=== PATIENT | male | born 1965 | race Caucasian/White ===

== ENCOUNTER 2018-10-21 15:48 | Observation (INO) ==
[2018-10-21 16:20] LABS: BASO# 0.04 X1000 (0.0-0.2); BASO% 0.4 % (0.0-0.8); EOS# 0.39 X1000 (0.0-0.7); EOS% 3.6 % (0.0-10.0); HEMATOCRIT 41.6 % (42.0-52.0); HEMOGLOBIN 14.7 g/dL (14.0-18.0); IMM GRAN# 0.02 X1000 (0.0-0.04); IMM GRAN% 0.2 % (0.0-0.5); LYMPH# 4.31 X1000 (1.2-3.4); LYMPH% 40.1 % (20.5-51.1); MCH 33.2 PG (27-31); MCHC 35.3 g/dL (33-37); MCV 93.9 FL (81-99); MONO# 0.57 X1000 (0.11-0.59); MONO% 5.3 % (1.7-9.3); MPV 10.4 FL (7.4-10.4); NEUT# 5.42 X1000 (1.4-6.5); NEUT% 50.4 % (42.2-75.2); PLT 203 X1000 (130-400); RBC 4.43 XMIL (4.7-6.1); RDW 14.1 % (11.5-14.5); WBC 10.75 X1000 (4.8-10.8)
[2018-10-21 16:33] LABS: INR 0.92; PROTIME 12.8 Seconds (11.0-16.0)
[2018-10-21 16:34] LABS: PTT 28.1 Seconds (22.3-41.8)
[2018-10-21 16:46] LABS: AGAP 9; ALBUMIN 3.9 g/dL (3.5-5.0); ALKALINE PHOSPHATASE 81 U/L (32-122); BUN 6 mg/dL (8-22); CHLORIDE 105 mmol/L (98-107); COSMO 278; CREATININE 0.9 mg/dL (0.7-1.2); ESTIMATED GFR > 60; GLUCOSE 114 mg/dL (70-104); GOT 15 U/L (10-34); GPT 8 U/L (10-44); POTASSIUM 4.1 mmol/L (3.5-5.1); SODIUM 140 mmol/L (136-145); TCO2 25 mmol/L (25-35); TOTAL BILIRUBIN < 0.15 mg/dL (0.20-1.00); TOTAL PROTEIN 6.2 g/dL (6.3-8.3)
--- NOTE | 2018-10-21 16:57 | Diag Imaging Result Doc PS360 ---
EXAM: CT HEAD W/O CONTRAST HISTORY: stoke like symptoms TECHNIQUE: CT head without contrast COMPARISON: None. FINDINGS: No parenchymal hemorrhage. No epidural or subdural hematoma. No subarachnoid hemorrhage. No mass identified on this noncontrasted exam. No hydrocephalus. No sinus opacification. IMPRESSION: No hemorrhage. Negative brain CT without contrast. This exam was performed using automated exposure control, adjustment of mA or kV according to patient size, and/or use of iterative reconstruction technique. Electronically signed by Pancho Henning 10/21/2018 4:54 PM
--- NOTE | 2018-10-21 17:15 | PROVIDER DOCUMENTATION ---
This chart was entered by Mildred Sandoval Scribe, acting as scribe for Talib Patterson MD. HPI-Neurological Disorder - General Chief Complaint: Stroke-Like Symptoms Stated Complaint: STROKE Time Seen by Provider: 10/21/18 16:00 Source: patient Allergies/Adverse Reactions: Patient Allergies Allergy/AdvReac Type Severity Reaction Status Date / Time cephalexin monohydrate * Allergy Intermediate SWELLING Verified 04/10/15 16:23 [From Keflex] Home Medications: Home Medication List Medication Instructions Recorded Confirmed Last Taken Type Ibuprofen [Motrin] 600 mg PO TID #30 tablet 04/10/15 Unknown Rx - History of Present Illness-Neuro Nature of Presenting Problem: 53 y/o male presents to ED with intermittent L sided weakness/numbness, slurred speech, dizziness, and difficulty walking onset this morning. Pt reports his symptoms were present when he woke up at 0700 this morning. Pt states he has had 3-4 episodes of these symptoms today. Pt reports his symptoms have improved throughout the day. Pt is alert and oriented. Severity: reports: mild Onset/Duration: reports: this morning Timing: reports: gone now Context: reports: impaired speech, other (L sided weakness) Character of Altered Mental Status: reports: N/A Any recent trauma/injury?: reports: none Character of Deficits: reports: new weakness (L sided), altered sensation (L sided numbness), impaired speech, decreased ability to walk New weakness or altered sensation location:: reports: IVANIA LOPEZ Cognitive Baseline: alert, oriented x3 Gait Baseline: walks without assistance Associated Symptoms: reports: dizziness, numbness in legs/feet (L sided), slurred speech, trouble walking, weakness (L sided) Similar Symptoms Previously?: No Recently seen or treated by another doctor?: No Review of Systems - Adult - REVIEW OF SYSTEMS - ADULT Constitutional: denies: chills, fever Eyes: reports: no symptoms reported Ears, Nose, Mouth & Throat: reports: no symptoms reported Cardiovascular: denies: chest pain, palpitations Respiratory: denies: cough, shortness of breath Gastrointestinal: denies: abdominal pain, diarrhea, nausea, vomiting Genitourinary: reports: no symptoms reported Musculoskeletal: denies: back pain, joint pain Integumentary: reports: no symptoms reported Neurological: reports: dizziness/vertigo, numbness (L sided), slurred speech, other (L sided weakness; difficulty walking). denies: seizure Psychiatric: reports: no symptoms reported Endocrine: reports: no symptoms reported Hematologic/Lymphatic: reports: no symptoms reported Allergic/Immunologic: reports: no symptoms reported All Other Systems: Reviewed and Negative Past History - Adult - PAST MEDICAL HISTORY-ADULT Review of Records: reports: Old Records Reviewed, Nursing Assessment Review, Medications Reviewed Major Childhood Illnesses: reports: denies history Respiratory: reports: COPD - PRIOR SURGERIES/PROCEDURES Surgical/Procedure History: reports: hernia repair, orthopedic (extremity) (left knee) - PRIOR HOSPITALIZATIONS Prior Hospitalizations: reports: none - IMMUNIZATION STATUS Childhood Immunizations: See Nurse Assessment Flu Vaccine: See Nurse Assessment - FAMILY HISTORY Family History: reviewed, not pertinent - SOCIAL HISTORY Smoking: greater than 1 pack/day Provider spent 3-5 mins advising pt. on dangers of tobacco.: Discussed manners to quit use, and f/u contacts for add'l counseling. Substance Use: none/never Alcohol Use Frequency: occasionally Living Situation: family Physical Exam- Neurological - Physical Exam-Neuro Initial Vital Signs Reviewed: Yes General Appearance: appears well, alert, no apparent distress Eye Exam: bilateral eye: normal inspection, PERRL, EOMI HENMT: normocephalic/atraumatic, moist mucous membranes, normal ENT inspection Head Injury: no evidence of injury Neck: non-tender, full range of motion Respiratory: chest non-tender, lungs clear, normal breath sounds Cardiovascular: normal peripheral pulses, regular rate, rhythm Abdominal Exam: normal bowel sounds, non tender, soft Extremity: normal range of motion, non-tender, normal gait epic cupid analyst Exam: normal hearing, normal speech, PERRL Coordination/Gait: normal finger to nose, normal gait Motor/Sensory: no motor deficit, no sensory deficit, no pronator drift Neurologic: epic cupid analyst II-XII nml as tested, grossly normal, no motor/sensory deficits Integumentary: normal color, warm/dry Psych/Mental Status: normal mood/affect, normal thought content, normal thought process, oriented x 3 Progress - PLAN OF CARE/RESULTS Progress/Plan/Lab Results: Vital Signs - 8 hr 10/21/18 15:49 Temperature 97.5 F L Pulse Rate 69 Respiratory Rate 18 Blood Pressure 142/79 O2 Sat by Pulse Oximetry 98 Laboratory Results - last 24 hr 0810/21/18 10/21/18 16:02 16:02 16:02 WBC 10.75 RBC 4.43 L Hgb 14.7 Hct 41.6 L MCV 93.9 MCH 33.2 H MCHC 35.3 RDW Std Deviation 14.1 Plt Count 203 MPV 10.4 Immature Gran % (Auto) 0.2 Neut % (Auto) 50.4 Lymph % (Auto) 40.1 Larue % (Auto) 5.3 Eos % (Auto) 3.6 Baso % (Auto) 0.4 Immature Gran # (Auto) 0.02 Neut # (Auto) 5.42 Lymph # (Auto) 4.31 H Larue # (Auto) 0.57 Eos # (Auto) 0.39 Baso # (Auto) 0.04 PT INR PTT (Actin FS) Sodium 140 Potassium 4.1 Chloride 105 Carbon Dioxide 25 Anion Gap 9 BUN 6 L Creatinine 0.9 Estimated GFR/1.73 m2 > 60 BUN/Creatinine Ratio 7 Glucose 114 H POC Glucose Calculated Osmolality 278 Calcium 9.0 Total Bilirubin < 0.15 L AST 15 ALT 8 L Alkaline Phosphatase 81 Troponin T < 0.010 Total Protein 6.2 L Albumin 3.9 Globulin 2.0 Albumin/Globulin Ratio 2.0 10/21/18 10/21/18 16:02 16:02 WBC RBC Hgb Hct MCV MCH MCHC RDW Std Deviation Plt Count MPV Immature Gran % (Auto) Neut % (Auto) Lymph % (Auto) Larue % (Auto) Eos % (Auto) Baso % (Auto) Immature Gran # (Auto) Neut # (Auto) Lymph # (Auto) Larue # (Auto) Eos # (Auto) Baso # (Auto) PT 12.8 INR 0.92 PTT (Actin FS) 28.1 Sodium Potassium Chloride Carbon Dioxide Anion Gap BUN Creatinine Estimated GFR/1.73 m2 BUN/Creatinine Ratio Glucose POC Glucose 121 H Calculated Osmolality Calcium Total Bilirubin AST ALT Alkaline Phosphatase Troponin T Total Protein Albumin Globulin Albumin/Globulin Ratio Orders Category Date Time Status Cardiac Monitoring DIRECTED Care 10/21/18 16:01 Active Finger Stick Blood Sugar (ED) DIRECTED Care 10/21/18 16:01 Active Oxygen Therapy- ED Nursing DIRECTED Care 10/21/18 16:01 Active Saline Loc NOW Care 10/21/18 16:01 Active CHEST-PORTABLE [RAD] Stat Exams 10/21/18 16:[address] HEAD W/O CONTRAST [CT] Stat Exams 10/21/18 16:01 Completed CBC WITH ELECTRONIC DIFF [HEME] Stat Lab 10/21/18 16:02 Completed COMPREHENSIVE METABOLIC PANEL [CHEM] Stat Lab 10/21/18 16:02 Completed PROTIME WITH INR [COAG] Stat Lab 10/21/18 16:02 Completed PTT [COAG] Stat Lab 10/21/18 16:02 Completed TROPONIN T Stat Lab 10/21/18 16:02 Completed URINE DRUG SCREEN PL Stat Lab 10/21/18 16:03 Ordered EKG [EKG] Stat Ther 10/21/18 16:01 Ordered Result Diagrams: 10/21/18 16:02 10/21/18 16:02 - REASSESSMENT Reassessment #1 Time Reassessed: 17:26 Status: improving (Pt ambulatory around the room and ED without difficulty. Pt limps on the left from prior knee issues. Pt states he is not insured and that he will not be able to followup.) - EKG 1 Time of EKG reading by physician:: 15:56 EKG Read and Signed by:: Talib Patterson EKG Interpretation (*Must complete 3 of following elements*): Normal Rate: 66 Rhythm: NSR [place]: normal QRS: normal [place] Interval: normal ST Wave: normal - XRAY 1 XRAY Study: Chest Impression: See EMR Report - CT/MRI 1 CT Study: Head Impression: See EMR Report ([facility] - [address] [place] [address] [place] [id number] [facility] - [address] [place] [address] Department of Imaging Patient: SOPHIA LE Date: 10/21/18MR#: [id number] : 1965ADM Status: PRE ERAcct#: [id number] Age/Sex: 53/MRoom/Bed: Loc: P.ED Ordering Physician: Talib Patterson MD Family Physician: None,PCP Reason for Procedure: stoke like symptoms Signed EXAM: CT HEAD W/O CONTRAST HISTORY: stoke like symptoms TECHNIQUE: CT head without contrast COMPARISON: None. FINDINGS: No parenchymal hemorrhage. No epidural or subdural hematoma. No subarachnoid hemorrhage. No mass identified on this noncontrasted exam. No hydrocephalus. No sinus opacification. IMPRESSION: No hemorrhage. Negative brain CT without contrast. This exam was performed using automated exposure control, adjustment of mA or kV according to patient size, and/or use of iterative reconstruction technique. Electronically signed by Pancho Henning 10/21/2018 4:54 PM 10/21/181653 Interpreting Physician: Pancho Henning MD Dictated Date/Time: 10/21/181652 cc: Talib Patterson MD; None,PCP) - CONSULTS/PCP/HOSPITALIST Notification #1 *Consult/PCP/Hospitalist*: Dr. Mauricio Time Discussed: 17:26 Reason/Comments: Dysmetria Consult Disposition: Admit Departure - Departure Date of Disposition Decision: 10/21/18 Time of Disposition Decision: 17:31 DIAGNOSIS: Dysmetria, Tobacco use Disposition: ADMITTED INPATIENT 09 Certified Medical Emergency: Emergent Condition: Stable Referrals and Follow-Ups: None,PCP [Primary Care Provider] - Discharge Education: Steps to Quit Smoking, [id number] - Critical Care Note This patient required my direct & personal management of CC.: No Attestation - Physician/ RUCHI Attestation Patient care was provided by Advanced Practice Provider:: No The physician spent face to face time with patient:: Yes Advanced Practice Provider documentation review:: Supervising physician onsite and consulted in the evaluation and care of this patient. The physician did have a face to face encounter with the patient. - NIH Stroke Scale NIH Type: Initial Evaluation Level of Consciousness: 0-Alert LOC Questions (ask month and age): 0-Answers Both Correctly LOC Commands (ask to open & close eyes;make a fist, let go): 0-Obeys Both Correctly Best Gaze (horizontal eye movement): 0-Normal Visual (use finger movement, counting or visual threat): 0-No Visual Loss Facial Palsy (show teeth or raise eyebrows & close eyes tght: 0-Symmetrical Movement Motor Function-left arm: 0-Normal Motor Function-right arm: 0-Normal Motor Function-left le-Normal Motor Function-right le-Normal Limb Ataxia(hociiu-[id number], or heel to davison): 0-No Ataxia Sensory(pin prick to face,arms,trunk,legs-compare side/side): 0-No Ataxia Best Language(name item/read sentence.Ex-Down to Earth): 0-No Aphasia Dysarthria(Pt read words or say words Ex.Mama,Tip-Top,Thanks: 0-Normal Articulation Extinction and Inattention: 0-Normal NIH Total Score: 0 Modified [place] Score Criteria: 0-no symptoms Stroke tPA Guidelines - Inclusion Criteria for IV tPA 18 years old or older: Yes Ischemic stroke with measurable deficit: No Onset <3 hours ago *OR* 3-4.5 hours ago: No - Exclusion Criteria for IV tPA Evidence of intracranial hemorrhage on CT: No Presentation suggest SAH: No CT reveals defined area of hypodensity: No Evidence of AVM, neoplasm, aneurysm: No Seizure at stroke onset: No Active internal bleeding or acute trauma: No Platelet Count Less Than 100,000: No Heparin Within Last 48 HRS (PTT >Lab normal limits): No INR > 1.7 (warfarin use): No Use IIB/IIIA inhibitors within 24 hours: No Serious Head Trauma Within Last 3 Months: No Arterial Puncture Within Last 7 Days: No Lumbar Puncture Within Last 7 Days: No Repeated systolic Blood Pressure >185 or Diastolic >110: No - Additional Exclusion Criteria for IV tPA Currently on Coumadin: No Patient older than 80: No Prior stroke and diabetes: No Baseline NIHSS score > 25: No - Relative Contraindications to IV tPA CT reveals extensive area of infarct (>1/3 MCA territory): No Minor or rapidly improving stroke symptoms: Yes Major Surgery or Serious Trauma In Previous 14 Days: No AMI within 3 months: No Gastrointestinal or Urinary Tract hemorrhage in Past 21 Days: No Post - AMI pericarditis: No Blood Glucose Less Than 50 mg/dl or Greater Than 400 mg/dl: No - Consultation Candidate for:: NOT A CANDIDATE Reason not a candidate:: Minor stroke symptoms onset 9 hours ago and resolved. This chart was documented by the indicated scribe, (Mildred Sandoval Scribe) and accurately reflects the services I performed and decisions made by me, Talib Patterson MD, as attested by the provider's signature.
--- NOTE | 2018-10-21 17:34 | Diag Imaging Result Doc PS360 ---
EXAM: CHEST-PORTABLE HISTORY: stroke like symptoms TECHNIQUE: Portable chest 10/30/2014 COMPARISON: None. FINDINGS: The lungs are well expanded. The heart is not enlarged. The vessels are not distended. There are increased interstitial markings in the lower lungs. No consolidation. No effusion identified. IMPRESSION: 1.Emphysema 2.Basilar atelectasis versus tiny infiltrates Electronically signed by Pancho Henning 10/21/2018 5:32 PM
--- NOTE | 2018-10-21 18:26 | EKG Report ---
Test Performed on : 10/21/2018 3:56:22 PM Test Reason : stroke like symptoms Blood Pressure : / mmHG Vent. Rate : 066 BPM Atrial Rate : 066 BPM P-R Int : 144 ms QRS Dur : 084 ms QT Int : 384 ms P-R-T Axes : 073 014 040 degrees QTc Int : 402 ms Normal sinus rhythm. Normal ECG When compared with ECG of 30-OCT-2014 10:12, No significant change was found Unconfirmed Result
[2018-10-21] MEDS: NS 1,000 ML IV SCH (18:59)
[2018-10-22] MEDS: NS 1,000 ML IV SCH (03:55)
[2018-10-22 08:02] VITALS: BP 134/84
[2018-10-22] MEDS ORDERED: VENTOLIN HFA INH PRN (11:08)
[2018-10-22] MEDS ORDERED: ASPIRIN PO SCH (11:15)
--- NOTE | 2018-10-22 11:59 | HISTORY AND PHYSICAL ---
PRIMARY CARE PHYSICIAN: None. CHIEF COMPLAINT: Intermittent left-sided weakness, numbness, slurred speech, dizziness, and difficulty walking that began yesterday morning, and the symptoms improved throughout the day. HISTORY OF PRESENTING ILLNESS: This is a 53-year-old male who presents to [facility] ER with complaints of intermittent left-sided weakness, numbness, slurred speech, dizziness, and difficulty walking that began yesterday morning around 7 a.m. States he had 3 to 4 symptoms like that throughout the day. By the time he arrived to the emergency room, the symptoms had subsided. We did a CT of the head that showed no hemorrhage, and a negative brain CT without contrast, and his laboratory data was unremarkable, but he was admitted for further evaluation and treatment. PAST MEDICAL HISTORY: COPD. PAST SURGICAL HISTORY: Hernia repair and a left knee surgery. FAMILY HISTORY: Reviewed and noncontributory. SOCIAL HISTORY: Currently lives with family. Smokes a pack of cigarettes a day, and denies any alcohol or illicit drug use. ALLERGIES: Keflex. HOME MEDICATIONS: He had has a Ventolin inhaler, 2 puffs every 6 hours. IMAGING AND LABORATORY DATA: White blood cell count of 10.75, hemoglobin of 14.7, hematocrit 41.6, platelets 203,000. PT and INR 12.8 and 0.92. Sodium 140, potassium 4.1, chloride 105, CO2 of 25, BUN of 6, creatinine 0.9, glucose 114. Head CT showed no hemorrhage. Negative brain CT without contrast. Chest x-ray showed emphysema and basilar atelectasis versus a tiny infiltrate. EKG showed normal sinus rhythm at 66. REVIEW OF SYSTEMS: He denied any fever, chills. He was positive for some blurred vision, dizziness, slurred speech, left-sided weakness and numbness. Denied any chest pain, coughing, shortness of breath. Denied any abdominal pain, constipation, diarrhea, burning or hurting with urination. PHYSICAL EXAMINATION: VITAL SIGNS: On arrival, he had a temperature of 97.5 degrees, pulse 69, respirations 18, blood pressure 142/79, saturating 98% on room air. GENERAL: This is a 53-year-old male who is sitting on the side of the bed and answers questions appropriately. HEENT: Normocephalic and atraumatic. Normal ENT inspection. Oropharynx and nares are clear. Eyes: Pupils are equal, round, and reactive to light and accommodation. Extraocular movements are intact. NECK: Normal inspection. Normal range of motion. LUNGS: Clear to auscultation bilaterally with equal lung expansion and chest wall movement. HEART: Regular rate and rhythm. No murmurs, rubs, or gallops. ABDOMEN: Soft, nontender, nondistended. Bowel sounds are present x4 quadrants. MUSCULOSKELETAL: He has 5/5 strength x4 extremities. NEUROLOGICAL: The cranial nerves II through XII are grossly intact. All previous issues have resolved. ASSESSMENT: 1. Transient ischemic attack. 2. Hypertension. 3. Chronic obstructive pulmonary disease, history of. 4. Tobacco abuse. PLAN: He was admitted to the medical unit, placed on telemetry. We are going to check an echocardiogram and a carotid ultrasound today. Will continue his home medication. Will place him on aspirin 81 mg p.o. daily, first dose now. Will check his lipid profile. We discussed at length with this patient, smoking cessation and its importance. The patient verbalizes understanding. Dictated by JOSE Gupta for Bharat Mauricio MD cc: JOSE Gupta MD
--- NOTE | 2018-10-22 12:13 | Extremity Venous Study ---
Carotid Ultrasound - 10/22/2018 INDICATION: tia vs cva TECHNIQUE: COMPARISON: None FINDINGS: The carotid artery systems are normal bilaterally. No stenosis or aneurysm. Normal flow velocities. Maximum velocity on the right side is 52 cm/s. Maximum on the left side is 56 cm/s. The vertebral arteries are patent bilaterally. IMPRESSION: Negative exam. Electronically signed by Manav Mosher 10/22/2018 12:11 PM
[2018-10-22 13:56] LABS: UR AMPHETAMINES QUAL NONE DETECTED (NONE DETECT); UR BARBITUATES QUAL NONE DETECTED (NONE DETECT); UR BENZODIAZEPIN QUAL NONE DETECTED (NONE DETECT); UR CANNABINOIDS QUAL PRESUMPTIVE POSITIVE (NONE DETECT); UR COCAINE QUAL NONE DETECTED (NONE DETECT); UR METHADONE QUAL NONE DETECTED (NONE DETECT); UR METHAMPHETAMINE QUAL NONE DETECTED (NONE DETECT); UR OPIATES QUAL NONE DETECTED (NONE DETECT); UR OXYCODONE QUAL NONE DETECTED (NONE DETECT); UR PCP QUAL NONE DETECTED (NONE DETECT); UR PROPOXYPHENE QUAL NONE DETECTED (NONE DETECT); UR TCA QUAL NONE DETECTED (NONE DETECT)
--- NOTE | 2018-10-22 15:46 | HISTORY AND PHYSICAL ---
ADDENDUM: Patient seen and examined by myself. Full note dictated and discussed with nurse practitioner. Patient presented to the hospital noting had some left-sided weakness. Thankfully some of this had improved by the time he got to the ER. We are going to admit him to the hospital. I discussed with him the importance of stopping smoking and its role in strokes. We will check carotid and will follow. cc: Bharat Mauricio MD
--- NOTE | 2018-10-22 16:40 | DISCHARGE SUMMARY ---
ADMISSION DATE: 10/21/2018 DISCHARGE DATE: 10/22/2018 PRIMARY CARE PHYSICIAN: None. ADMISSION DIAGNOSES: 1. Transient ischemic attack. 2. Hypertension. 3. Chronic obstructive pulmonary disease, history of. 4. Tobacco abuse. DISCHARGE DIAGNOSES: 1. Transient ischemic attack. 2. Hypertension. 3. Chronic obstructive pulmonary disease, history of. 4. Tobacco abuse. SUMMARY OF FINDINGS: This is a 53-year-old male who was having some intermittent left-sided weakness, numbness, slurred speech, and dizziness with difficulty walking that began yesterday morning. His symptoms were waxing and waning throughout the day. By the time he did arrive to the emergency room last night, the symptoms had stops. We did a CT of his head that showed no hemorrhage and a negative brain CT without contrast. Laboratory data was unremarkable. He was admitted. We did a carotid study that was negative. We have done an echocardiogram. The results are pending, but it is felt that since his symptoms have resolved, that he can safely be discharged home. DISCHARGE MEDICATIONS: Ventolin inhaler 2 puffs q.6 hours p.r.n. He will have a new prescription for aspirin 81 mg p.o. daily and atorvastatin 20 mg p.o. at bedtime. FOLLOWUP: He needs to obtain a primary care physician and follow up with them. All discharge instructions have been reviewed with the patient. We also discussed smoking cessation with this patient who verbalized understanding. TIME SPENT: This was a 35-minute discharge. Dictated by JOSE Gupta for Bharat Mauricio MD cc: JOSE Gupta MD
--- NOTE | 2018-10-22 16:46 | DISCHARGE SUMMARY ---
ADMISSION DATE: 10/21/2018 DISCHARGE DATE: 10/22/2018 DISCHARGE DIAGNOSES: 1. Transient ischemic attack, appears resolved. 2. Chronic tobacco abuse. 3. Chronic obstructive pulmonary disease. 4. History of left knee pain. 5. Hernia repair. CONSULTATIONS: None. PROCEDURES: Carotid Doppler, normal. BRIEF HOSPITAL COURSE: The patient was admitted to the hospital secondary to left-sided weakness. Thankfully, this has completely resolved. Did discuss with him at great length the importance of taking cholesterol medications, stop the smoking, following his blood pressure, and staying well hydrated, etc. Thankfully, all of his symptoms resolved. On discharge, he will be discharged home. DISPOSITION: Patient will be discharged home. We will start him on cholesterol medication. Discussed with him as noted above that he needs to stop smoking. Will continue to follow with his primary care of choice. He will take a baby aspirin each day. cc: Bharat Mauricio MD
--- NOTE | 2018-10-22 22:22 | ECHO REPORT ---
ORDER DATE: 10/22/2018 MEASUREMENTS: Septal thickness 0.9, left ventricular end-diastolic diameter 3.8, posterior wall thickness 1.0, left ventricular end systolic diameter 2.4, aortic root 3.2, left atrium 2.9. SUMMARY: 1. Adequate quality study. 2. Aortic valve is trileaflet and opens normally on 2-dimensional images. Peak gradient across aortic valve is 5 mmHg. Mitral, tricuspid and pulmonic valves are without evidence of structural abnormality with trace mitral regurgitation and very mild tricuspid regurgitation. The estimated systolic PA pressure by Doppler is 35 mmHg. Aortic root is normal in size. 3. Normal left ventricular dimensions demonstrated. Estimated left ventricular ejection fraction appears to be at least 60%. No regional wall motion abnormalities are evident. Left atrium, right atrium, right ventricle are normal in size with grossly preserved right ventricular systolic function. 4. No pericardial effusion. 5. Appearance of inferior vena cava suggests normal central venous pressure. cc: MD Milena Hearn CRNP
== END 2018-10-22 15:23 | disposition home or self-care (01) ==
LOC: P.ED 15:48 → P.MEDSURG 15:48
PROVIDERS: ATTEND Family Medicine